=== PATIENT | female | born 1995 | race Caucasian/White ===

== ENCOUNTER 2016-09-04 17:37 | Emergency (ER) | payer BC, OTHER ==
[2016-09-04 17:45] VITALS: RESP 18; TEMP 97.6
[2016-09-04] MEDS ORDERED: SODIUM CHLORIDE 0.9% 1,000 ML IV STA (17:50)
[2016-09-04] MEDS ORDERED: RX INFO: IV CONTRAST WAS GIVEN 1 EACH MISC MISCELLANE PRN (17:50)
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
[2016-09-04 18:35] LABS: Basophils # (A) 0.1 k/uL (0-0.2); Basophils % (A) 1 %; CH 28.6; Eosinophils # (A) 0.2 k/uL (0-0.7); Eosinophils % (A) 3 %; HCT 42.5 % (34.0-46.0); HGB 13.9 gm/dL (11.4-16.0); Luc # (Auto) 0.11; Luc % (Auto) 2; Lymphocytes # (A) 1.3 k/uL (1.0-4.8); Lymphocytes % (A) 18 %; MCH 28.4 pg (25.0-35.0); MCHC 32.6 g/dL (31.0-37.0); MCV 86.9 fL (80.0-100.0); Mean Platelet Volume 7.9; Monocytes # (A) 0.4 k/uL (0-1.0); Monocytes % (A) 5 %; Neutrophils # (A) 5.2 k/uL (1.3-7.7); Neutrophils % (A) 72 %; RBC 4.89 m/uL (3.80-5.40); RDW 13.7 % (11.5-15.5); WBC 7.2 k/uL (4.0-11.0); WBC (Perox) 7.04
[2016-09-04 18:47] LABS: ALT 6 U/L (9-52); AST 56 U/L (14-36); Alkaline Phosphatase 67 U/L (38-126); Anion Gap 13 mmol/L; Blood Urea Nitrogen 10 mg/dL (7-17); Carbon Dioxide 26 mmol/L (22-30); Chloride 102 mmol/L (98-107); Glucose 91 mg/dL (74-99); Non-African American GFR(MDRD) >60 (>60 ml/min/1.73 sqM); Potassium 5.2 mmol/L (3.5-5.1); Sodium 141 mmol/L (137-145); Total Bilirubin 1.9 mg/dL (0.2-1.3); Total Protein 8.8 g/dL (6.3-8.2)
[2016-09-04 19:10] LABS: Appearance,Urine Clear (Clear); Bilirubin,Urine Negative (Negative); Glucose,Urine (UA) Negative (Negative); Ketones,Urine Negative (Negative); Leukocyte Esterase,Urine Negative (Negative); Nitrite,Urine Negative (Negative); Protein,Urine Negative (Negative); Specific Gravity,Urine 1.005 (1.001-1.035); UA Billing (MACRO vs. MICRO) CHEM; Urobilinogen,Urine <2.0 mg/dL (<2.0)
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
[2016-09-04 20:55] VITALS: BP 114/58; PULSE 80
== END 2016-09-04 21:04 | disposition home or self-care (01) ==
LOC: EC 17:37
DX: S00.83XA Contusion of other part of head, initial encounter (principal); R10.30 Lower abdominal pain, unspecified; F17.210 Nicotine dependence, cigarettes, uncomplicated; Z91.048 Other nonmedicinal substance allergy status; V48.5XXA Car driver injured in noncollision transport accident in traffic accident, initial encounter; Y92.410 Unspecified street and highway as the place of occurrence of the external cause
CPT/HCPCS: 99284; 96360; 36415; 80053; 85025; 81003; 81025; 72125; 70486; 70450; 71260; 74177; Q9967

== ENCOUNTER 2018-04-05 04:15 | Inpatient (IN) | payer BC, OTHER ==
[2018-04-05] MEDS ORDERED: LIDOCAINE 0.5% (PF) 5 MG/ML (50 ML SDV) SQ PRN (04:29)
[2018-04-05] MEDS ORDERED: METHYLERGONOVINE 0.2 MG/ML 1 ML AMP IM PRN (04:29)
[2018-04-05] MEDS ORDERED: CARBOPROST TROMETHAMINE 250 MCG/ML 1 ML AMP IM PRN (04:29)
[2018-04-05] MEDS ORDERED: TERBUTALINE 1 MG/ML VIAL SQ PRN (04:29)
[2018-04-05] MEDS ORDERED: OXYTOCIN 10 UNIT/ML 1 ML VIAL IM PRN (04:29)
[2018-04-05] MEDS ORDERED: LACTATED RINGERS 1,000 ML IV SCH ×2 (04:30)
[2018-04-05 05:16] VITALS: BMI 27.7
[2018-04-05] MEDS ORDERED: ROPIVACAINE 5MG/ML 20ML VIAL ONE (05:30)
[2018-04-05] MEDS ORDERED: fentaNYL (PF) 50 MCG/ML 5 ML AMP ONE (05:30)
[2018-04-05] MEDS ORDERED: SODIUM CHLORIDE 0.9% 100 ML BAG ONE (05:30)
[2018-04-05 05:31] LABS: Basophils % (A) 0 %; Eosinophils # (A) 0.2 k/uL (0-0.7); Eosinophils % (A) 1 %; HCT 37.8 % (34.0-46.0); HGB 12.2 gm/dL (11.4-16.0); Lymphocytes # (A) 1.4 k/uL (1.0-4.8); Lymphocytes % (A) 9 %; MCH 28.6 pg (25.0-35.0); MCHC 32.3 g/dL (31.0-37.0); MCV 88.3 fL (80.0-100.0); Mean Platelet Volume 9.2; Monocytes # (A) 0.7 k/uL (0-1.0); Monocytes % (A) 5 %; Neutrophils # (A) 13.3 k/uL (1.3-7.7); Neutrophils % (A) 85 %; Platelet Count 189 k/uL (150-450); RBC 4.28 m/uL (3.80-5.40); RDW 14.8 % (11.5-15.5); WBC 15.6 k/uL (3.8-10.6)
[2018-04-05 05:49] LABS: Amphetamine Screen,Urine Not Detected (NotDetected); Barbiturate Screen,Urine Not Detected (NotDetected); Benzodiazepines Screen,Urine Not Detected (NotDetected); Cocaine Screen,Urine Not Detected (NotDetected); Methadone Screen, Urine Not Detected (NotDetected); Opiate Screen,Urine Not Detected (NotDetected); Oxycodone Screen, Urine Not Detected (NotDetected); Phencyclidine Screen,Urine Not Detected (NotDetected); Tricyclic Antidepressant,Urine Not Detected (NotDetected); Urn Cannabinoid Scrn Detected (NotDetected)
--- NOTE | 2018-04-05 06:25 | P.HPOB ---
History of Present Illness H&P Date: 04/05/18 Chief Complaint: Contractions This is a 22-year-old 1 para 0 with an estimated due date of 04/05/2018 who presents at 40-0/7 weeks gestation in spontaneous active labor. She reports onset of regular uterine contractions at approximately 2 AM. She denies leakage of fluids or vaginal bleeding. This has been complicated by late initiation of care and genital HSV. She is currently on Valtrex suppression. She denies current lesions or prodromal symptoms. Laboratory data: Blood type O+, antibody screen negative, rubella nonimmune, VDRL nonreactive, hep Veena surface antigen negative, HIV negative, VDRL nonreactive, currently clinically cultures negative, varus L immune, urine drug screen positive for cannabis on 02/23/2018, group B strep negative, GTT screening within normal limits. Review of Systems All systems: negative Past Medical History Past Medical History: Unable to Obtain Additional Past Medical History / Comment(s): irritable bowel syndrome History of Any Multi-Drug Resistant Organisms: None Reported Past Surgical History: No Surgical Hx Reported Additional Past Anesthesia/Blood Transfusion Reaction / Comment(s): has not had anesthetic Past Psychological History: Anxiety, Depression Smoking Status: Former smoker Past Alcohol Use History: Occasional Additional Past Alcohol Use History / Comment(s): Patient is smoker 1/3 pack cigarettes per day. She states she smokes marijuana on a daily basis. She has been known using hallucinogenics. Patient is unemployed. She has dropped out of high school. Pt admits to binge drinking twice a week does not know how much she consumes states it is a lot Past Drug Use History: Marijuana Additional Drug Use History / Comment(s): smokes 2 joints per day Has been taking mollies daily and occassional ecstacy - Past Family History Father Family Medical History: No Reported History Additional Family Medical History / Comment(s): There is age 43 and has problems with alcoholism. Mother Family Medical History: No Reported History Additional Family Medical History / Comment(s): Mother is age 42 and healthy. Patient has one half-brother with no major medical problems. Patient has 3 sisters, one is older with drinking problems but quit because she was and 2 are younger with no major medical problems. Medications and Allergies Home Medications Medication Instructions Recorded Confirmed Type Sertraline [Zoloft] 25 mg PO DAILY #30 tab 09/23/15 Rx lamoTRIgine [LaMICtal] 25 mg PO BID #60 tab 09/23/15 Rx traZODone HCL [Desyrel] 50 mg PO HS #30 tab 09/23/15 Rx Pnv,Calcium 72/Iron/Folic Acid 1 tab PO ONCE 04/05/18 04/05/18 History [ Plus Tablet] valACYclovir HCL [Valtrex] 1 tab PO ONCE 04/05/18 04/05/18 History Allergies Allergy/AdvReac Type Severity Reaction Status Date / Time adhesive tape Allergy Rash/Hives Verified 04/05/18 04:25 Exam Vital Signs Temp Pulse Resp BP Pulse Ox 04/05/18 04:38 96.7 F L 69 16 123/81 97 04/05/18 04:25 96.7 F L 69 16 123/81 97 Intake and Output 04/04/18 04/04/18 04/05/18 14:59 22:59 06:59 Other: # Voids 1 Weight 78.018 kg Upon my initial evaluation she is just received an epidural. This is a visibly uncomfortable, actively laboring female is having a difficult time sitting still in the head secondary to discomfort. On pelvic examination cervix is 8 cm dilated 100% effaced and the vertex is in the -2 station. Artificial rupture of membranes is undertaken and clear fluid is noted. scalp electrode is placed secondary to heart rate decelerations down to the 80s to 90s beats per minute. This doesn't resolve to the 110s to 1 20 bpm with maternal position changes and O2 and IV fluids. Blood pressure is 120s over 70s. Results Result Diagrams: 04/05/18 04:48 Abnormal Lab Results - Last 24 Hours (Table) 04/05/18 04/05/18 Range/Units 04:17 04:48 WBC 15.6 H (3.8-10.6) k/uL Neutrophils # 13.3 H (1.3-7.7) k/uL U Marijuana (THC) Screen Detected H (NotDetected) Assessment and Plan (1) Genital HSV Current Visit: Yes Status: Acute Code(s): A60.00 - HERPESVIRAL INFECTION OF UROGENITAL SYSTEM, UNSPECIFIED SNOMED Code(s): 07459777 (2) Rubella non-immune status, antepartum Current Visit: Yes Status: Acute Code(s): O99.89 - OTH DISEASES AND CONDITIONS COMPL PREG/CHLDBRTH; Z28.3 - UNDERIMMUNIZATION STATUS SNOMED Code(s ): 560874235 (3) Spontaneous onset of labor Current Visit: Yes Status: Acute Code(s): DXC9643 - SNOMED Code(s): 64874746 Plan: 22-year-old 1 para 0 at 40-0/7 weeks gestation in spontaneous active labor. Group B strep negative and Rh+. status currently overall reassuring. Anticipate normal spontaneous vaginal delivery.
[2018-04-05] MEDS ORDERED: IBUPROFEN 600 MG TAB PO PRN (10:15)
[2018-04-05] MEDS ORDERED: LANOLIN CREAM 5 GM TUBE TOPICAL PRN (10:15)
[2018-04-05] MEDS ORDERED: diphenhydrAMINE 50 MG/ML 1 ML VIAL IVP PRN ×2 (10:15)
[2018-04-05] MEDS ORDERED: HYDROCORTISONE 2.5% RECTAL CREAM 30 GM TUBE RECTAL PRN (10:15)
[2018-04-05] MEDS ORDERED: ACETAMINOPHEN TAB 325 MG TAB PO PRN (10:15)
[2018-04-05] MEDS ORDERED: diphenhydrAMINE 25 MG CAP PO PRN (10:15)
[2018-04-05] MEDS ORDERED: WITCH HAZEL 1 EACH MED..PAD TOPICAL PRN (10:15)
[2018-04-05] MEDS ORDERED: SIMETHICONE 80 MG CHEWABLE PO PRN (10:15)
[2018-04-05] MEDS ORDERED: BENZOCAINE/MENTHOL SPRAY 1 GM/SPRAY AEROSOL TOPICAL PRN (10:15)
[2018-04-05] MEDS ORDERED: ZOLPIDEM 5 MG TAB PO PRN (10:15)
[2018-04-05] MEDS ORDERED: diphenhydrAMINE 50 MG CAP PO PRN (10:15)
--- NOTE | 2018-04-05 10:15 | P.PROBDLV ---
Vaginal Delivery Note - . Vaginal Delivery Note: This is a 22-year-old white female 1 para 0 EDC 04/05/2018 at 40 weeks gestation. Patient presented in active spontaneous labor. Her was remarkable for rubella status nonimmune, blood type O+, group B strep cultures negative. Please see dictated history and physical for details. Artificial amniorrhexis revealed clear fluid. Patient requested and received an epidural. She progressed well through the first stage of labor. She became completely dilated at 0913 hours and began the second stage of labor at that time. heart tones were overall reassuring with excellent [id number] variability on internal scalp lead. There were type I decelerations noted, several with late components. However excellent maternal expulsive efforts were employed. The perineal body was prepped and draped in usual sterile fashion. The infant's head delivered occiput anterior and she restituted accordingly. There was no nuchal cord noted. The right or anterior shoulder was delivered easily from underneath the pubic symphysis at which time the oropharynx, nasopharynx, and external nares were all bulb suctioned on the perineal body. Patient was officially delivered a liveborn female infant at 0953 hours. Umbilical cord was doubly clamped and ligated, she was handed to waiting nurses for evaluation where scores of 9 and 9 at one and 5 minutes respectively were given. The placenta delivered spontaneously, it was inspected and noted to be intact with trivascular cord at 0956 hours. Uterus is massaged. Oxytocin is given. Inspection of the cervix, vagina, perineum, periurethral, and. Rectal areas revealed a small left first-degree perineal laceration. This was repaired in the usual fashion using 3-0 Vicryl suture for excellent reapproximation. Total estimated blood loss 350cc. weighs 4000 g, or 8 lbs. 13 oz. All sponge needle and instrument counts are correct at the end of my procedure. Patient and her family are allowed to begin the bonding experience in the LDR.
[2018-04-05] MEDS: SENNOSIDES-DOCUSATE SODIUM 1 EACH TAB PO SCH (21:01)
[2018-04-06 07:17] LABS: Basophils % (A) 0 %; Eosinophils # (A) 0.1 k/uL (0-0.7); Eosinophils % (A) 1 %; HCT 31.9 % (34.0-46.0); HGB 10.4 gm/dL (11.4-16.0); Lymphocytes # (A) 1.6 k/uL (1.0-4.8); Lymphocytes % (A) 12 %; MCH 29.6 pg (25.0-35.0); MCHC 32.7 g/dL (31.0-37.0); MCV 90.3 fL (80.0-100.0); Mean Platelet Volume 8.9; Monocytes # (A) 0.5 k/uL (0-1.0); Monocytes % (A) 4 %; Neutrophils # (A) 10.4 k/uL (1.3-7.7); Neutrophils % (A) 81 %; Platelet Count 170 k/uL (150-450); RBC 3.53 m/uL (3.80-5.40); RDW 14.9 % (11.5-15.5); WBC 12.7 k/uL (3.8-10.6)
--- NOTE | 2018-04-06 07:35 | P.DS ---
Providers Date of admission: 04/05/18 04:25 Expected date of discharge: 04/06/18 Attending physician: Poonam Ware Primary care physician: Stated None Hospital Course: This is a 22-year-old white female 1 para 0 EDC 04/05/2018 at 40 weeks gestation. Patient presented in active spontaneous labor. She had a reasonably unremarkable , group B strep cultures negative, rubella nonimmune. She has a history of herpes simplex, but has been on Valtrex prophylactically daily and presented with no signs or symptoms or lesions. Please see admitting history and physical for details. Artificial amniorrhexis revealed clear fluid. Patient received an epidural per her request. She declined the suggestion for oxytocin. She did go on to deliver a liveborn female infant with scores of 9 and 9 at one and 5 minutes respectively. Infant weighed 4000 g or 8 lbs. 13 oz. There was a small first-degree perineal laceration easily repaired. Please see my dictated delivery note for details. This morning the patient is doing well. She is voiding, ambulating and passing flatus without difficulty. Vital signs are stable and she is afebrile. Fundus is firm and in the midline, symmetric and 18 week size. Extremities are negative for edema. Chest is clear in all schmidt. is doing well. Patient is requesting discharged home and I believe she is in good condition for discharge. Patient will follow-up in the office with me in 6 weeks. I have reminded her no intercourse, tampons or douching. She will use [id number] Advil or Aleve as needed for pain. She will call me with any fevers shakes or chills, foul smelling or copious lochia, with the passage of large blood clots, with any pain not alleviated by [id number] products, or indeed with any concerns. I have given her prescription for a double electric breast pump which she will use as needed. We have briefly considered options for contraception and we will review this further in the office in 6 weeks. Patient Condition at Discharge: Good Plan - Discharge Summary Discharge Rx Participant: No New Discharge Prescriptions: No Action traZODone HCL [Desyrel] 50 mg PO HS #30 tab lamoTRIgine [LaMICtal] 25 mg PO BID #60 tab Sertraline [Zoloft] 25 mg PO DAILY #30 tab Pnv,Calcium 72/Iron/Folic Acid [ Plus Tablet] 1 tab PO ONCE valACYclovir HCL [Valtrex] 1 tab PO ONCE Discharge Medication List Sertraline [Zoloft] 25 mg PO DAILY #30 tab 09/23/15 [Rx] lamoTRIgine [LaMICtal] 25 mg PO BID #60 tab 09/23/15 [Rx] traZODone HCL [Desyrel] 50 mg PO HS #30 tab 09/23/15 [Rx] Pnv,Calcium 72/Iron/Folic Acid [ Plus Tablet] 1 tab PO ONCE 04/05/18 [ History] valACYclovir HCL [Valtrex] 1 tab PO ONCE 04/05/18 [History] Follow up Appointment(s)/Referral(s): Poonam Ware MD [STAFF PHYSICIAN] - 6 Weeks Discharge Disposition: HOME SELF-CARE
[2018-04-06] MEDS: SENNOSIDES-DOCUSATE SODIUM 1 EACH TAB PO SCH (08:00)
[2018-04-06 11:34] VITALS: BP 121/68; PULSE 67; RESP 18; TEMP 98.2
== END 2018-04-06 13:15 | disposition home or self-care (01) | DRG 806 ==
LOC: FBPOP 04:15 → 4FBP 04:25
PROVIDERS: ADMIT Obstetrics & Gynecology; ATTEND Obstetrics & Gynecology
PROC: 10E0XZZ Delivery of Products of Conception, External Approach (ICD-10-PCS; principal; 2018-04-05)
PROC: 0HQ9XZZ Repair Perineum Skin, External Approach (ICD-10-PCS; 2018-04-05)
PROC: 00HU33Z Insertion of Infusion Device into Spinal Canal, Percutaneous Approach (ICD-10-PCS; 2018-04-05)
PROC: 3E0R3BZ Introduction of Anesthetic Agent into Spinal Canal, Percutaneous Approach (ICD-10-PCS; 2018-04-05)
PROC: 4A1H7CZ Monitoring of Products of Conception, Cardiac Rate, Via Natural or Artificial Opening (ICD-10-PCS; 2018-04-05)
PROC: 10H073Z Insertion of Monitoring Electrode into Products of Conception, Via Natural or Artificial Opening (ICD-10-PCS; 2018-04-05)
DX: O70.0 First degree perineal laceration during delivery (principal); O98.32 Other infections with a predominantly sexual mode of transmission complicating childbirth; Z37.0 Single live birth; O99.324 Drug use complicating childbirth; F12.90 Cannabis use, unspecified, uncomplicated; O99.334 Smoking (tobacco) complicating childbirth; F17.210 Nicotine dependence, cigarettes, uncomplicated; O99.344 Other mental disorders complicating childbirth; F32.9 Major depressive disorder, single episode, unspecified; O99.62 Diseases of the digestive system complicating childbirth; K58.9 Irritable bowel syndrome, unspecified; F41.9 Anxiety disorder, unspecified; Z3A.40 40 weeks gestation of pregnancy; Z28.3 Underimmunization status; Z79.899 Other long term (current) drug therapy; Z81.1 Family history of alcohol abuse and dependence; Z91.048 Other nonmedicinal substance allergy status
CPT/HCPCS: 80306; 85025; 86850; 86900; 86901; 99213

== ENCOUNTER 2022-02-06 20:05 | Outpatient (CLI) | payer BC, OTHER ==
[2022-02-06 20:32] LABS: Appearance,Urine Clear (Clear); Bacteria,Urine Few /hpf; Bilirubin,Urine Negative (Negative); Blood,Urine Large (Negative); Color,Urine Light Yellow; Glucose,Urine (UA) Negative (Negative); Ketones,Urine Negative (Negative); Leukocyte Esterase,Urine Trace (Negative); Nitrite,Urine Negative (Negative); Protein,Urine Negative (Negative); RBC,Urine 21 /hpf (0-5); Specific Gravity,Urine 1.006 (1.001-1.035); Squamous Epithelial Cell,Urine <1 /hpf (0-4); Urobilinogen,Urine <2.0 mg/dL (<2.0); WBC,Urine 6 /hpf (0-5)
[2022-02-06 21:32] VITALS: BP 119/66; PULSE 86; RESP 16; TEMP 97.5
--- NOTE | 2022-02-17 09:41 | P.MSEPDOC ---
Presenting Problems - Arrival Data Date of Arrival on Unit: 02/06/22 Time of Arrival on Unit: 20:05 Mode of Transport: Ambulatory - Complaint OB-Reason for Admission/Chief Complaint: Other Comment: brown urine, contractions yesterday, and pelvic pressure Medical History - Information : 2 Para: 1 Term: 1 : 0 Abortions: Spontaneous or Elective: 0 Number of Living Children: 1 - Gestational Age Gestational Age by RYAN (wks/days): 30 Weeks and 6 Days Review of Systems - Review of Systems Constitutional: No problems Breast: No problems ENT: No problems Cardiovascular: No problems Respiratory: No problems Gastrointestinal: No problems Genitourinary: No problems Musculoskeletal: No problems Neurological: No problems Skin: No problems Vital Signs - Temperature Temperature: 97.5 F Temperature Source: Temporal Artery Scan - Pulse Pulse Oximetery Pulse Rate: 86 Pulse Assessment Method: Pulse Oximetry - Respirations Respiratory Rate: 16 Oxygen Delivery Method: Room Air O2 Sat by Pulse Oximetry: 98 - Blood Pressure Right Arm Blood Pressure: 119/66 Blood Pressure Mean: 83 Blood Pressure Source: Automatic Cuff Medical Screen Scoring - Cervical Exam Dilation (cm): 0 Effacement (%): 50 Station: -3 Membranes: Intact - Assessment - Baby A Baseline FHR: 140 Heart Rate - NICHD Category: Category I (Normal) NST: Reactive Physician Notification - Physician Notified Physician Notified Date: 02/06/22 Physician Notified Time: 20:15 Physician: Poonam Ware Order Received: Yes - Notification Comment Comment: Dr. Ware already on phone, report given on pt's complaints of brown urine,. contractions yesterday, and pelvic pressure today. Pt has only been on the monitors for. a few minutes but no contractions noted thus far. Orders to send a UA and perform SVE. 2054-Dr. Ware called, report given on SVE closed/thick/high, UA showed large blood,. 21 RBCs, and 6 WBCs, no contractions, and pt has no complaints at this time. Orders to. send UA to culture and discharge pt home with instructions to greatly increase oral. fluids, pelvic rest, and see Dr. Ware next week (not on the as currently. scheduled). Maternal Triage Index - Maternal Triage Index Presenting for scheduled procedure w/no complaint: No - Stat/Priority 1 Stat Priority 1: No - Urgent/Priority 2 Urgent Priority 2: No - Prompt/Priority 3 Prompt Priority 3: No - Non-Urgent/Priority 4 Non-Urgent Priority 4: Yes Criteria Met for Priority 4: 30 6/7weeks, brown urine, pelvic pressure, and contractions (yesterday) Disposition - Disposition OB Disposition: Physician follow up in office, Discharge to home Discharge Date: 02/06/22 Discharge Time: 21:01 I agree with the RN Medical Screening Exam: Yes Case reviewed; plan agreed upon as documented in EMR&OBIX.: Yes Diagnosis: RELATED CONDITIONS, UNSPECIFIED, THIRD TRIMESTER
== END 2022-02-06 21:01 | disposition home or self-care (01) ==
LOC: FBPOP 20:05
PROVIDERS: ATTEND Obstetrics & Gynecology
DX: O26.893 Other specified pregnancy related conditions, third trimester (principal); Z3A.30 30 weeks gestation of pregnancy; Z87.891 Personal history of nicotine dependence; Z91.048 Other nonmedicinal substance allergy status
CPT/HCPCS: 59025; 81001; 99213

== ENCOUNTER 2022-04-10 19:10 | Inpatient (IN) | payer OTHER ==
[2022-04-10] MEDS ORDERED: LIDOCAINE 0.5% (PF) 5 MG/ML (50 ML SDV) SQ PRN (19:39)
[2022-04-10] MEDS ORDERED: TERBUTALINE 1 MG/ML VIAL SQ PRN (19:39)
[2022-04-10] MEDS ORDERED: OXYTOCIN 30 UNITS/500 ML NS 30 UNIT in SALINE 1 500ML.BAG IV SCH ×2 (19:45→20:45)
[2022-04-10] MEDS ORDERED: AMPICILLIN 2,000 MG in SODIUM CHLORIDE 0.9% 100 ML IVPB STA (19:51)
[2022-04-10] MEDS ORDERED: diphenhydrAMINE 50 MG/ML 1 ML VIAL IVP PRN ×2 (20:37)
[2022-04-10] MEDS ORDERED: ZOLPIDEM 5 MG TAB PO PRN (20:37)
[2022-04-10] MEDS ORDERED: SIMETHICONE 80 MG CHEWABLE PO PRN (20:37)
[2022-04-10] MEDS ORDERED: BENZOCAINE/MENTHOL SPRAY 1 GM/SPRAY AEROSOL TOPICAL PRN (20:37)
[2022-04-10] MEDS ORDERED: diphenhydrAMINE 50 MG CAP PO PRN (20:37)
[2022-04-10] MEDS ORDERED: LANOLIN CREAM 5 GM TUBE TOPICAL PRN (20:37)
[2022-04-10] MEDS ORDERED: HYDROCORTISONE 2.5% RECTAL CREAM 30 GM TUBE RECTAL PRN (20:37)
[2022-04-10] MEDS ORDERED: ACETAMINOPHEN TAB 325 MG TAB PO PRN (20:37)
[2022-04-10] MEDS ORDERED: diphenhydrAMINE 25 MG CAP PO PRN (20:37)
--- NOTE | 2022-04-10 20:46 | P.PROBDLV ---
Vaginal Delivery Note - . Vaginal Delivery Note: 26-year-old at 39-6/7 weeks that presents in active labor. Patient is noted to be upon presentation to the room. With 1 push head was delivered in occiput anterior presentation, the shoulders followed by the body were delivered easily and the infant was placed on the maternal abdomen. After a short delay the umbilical cord was doubly clamped and cut. Cord blood was taken as her blood type was O+. The placenta was delivered spontaneously intact with a three-vessel cord being appreciated. On inspection the patient's vaginal vault a first-degree vaginal laceration was noted at the introitus. This area is injected with lidocaine and repaired with 3-0 Rapide in the usual fashion. Hemostasis appreciated after closure. Uterus is noted be firm and below the umbilicus. All counts are noted to be correct 2 after the delivery. Patient and tolerated delivery well and are resting comfortably.
--- NOTE | 2022-04-10 20:46 | P.HPOB ---
History of Present Illness H&P Date: 04/10/22 Chief Complaint: IUP at 39-6/7 weeks This is a 26-year-old at 39-6/7 weeks, estimated due date of 04/11 that presents in active labor. Patient is unsure when contractions began but states possibly this afternoon. She denied loss of fluid but amnisure was positive her e on labor and delivery. Patient has been receiving routine care that has been essentially uncomplicated. On bloodwork this patient is a blood type of O+, rubella is nonimmune, hepatitis B surface antigen negative, HIV negative, group beta strep cultures are positive. Patient notes good movement, states contractions every 4 minutes Review of Systems Constitutional: Denies chills, Denies fatigue, Denies fever Ears, nose, mouth and throat: Denies headache Cardiovascular: Denies leg edema Respiratory: Denies dyspnea Gastrointestinal: Denies nausea, Denies vomiting Genitourinary: Reports Past Medical History Past Medical History: Unable to Obtain Additional Past Medical History / Comment(s): irritable bowel syndrome History of Any Multi-Drug Resistant Organisms: None Reported Past Surgical History: No Surgical Hx Reported Additional Past Anesthesia/Blood Transfusion Reaction / Comment(s): has not had anesthetic Smoking Status: Never smoker - Past Family History Father Family Medical History: No Reported History Additional Family Medical History / Comment(s): There is age 43 and has problems with alcoholism. Mother Family Medical History: No Reported History Additional Family Medical History / Comment(s): Mother is age 42 and healthy. Patient has one half-brother with no major medical problems. Patient has 3 sisters, one is older with drinking problems but quit because she was and 2 are younger with no major medical problems. Medications and Allergies Home Medications Medication Instructions Recorded Confirmed Type Vit No.180/Iron/Folic 1 tab PO ONCE 04/05/18 02/06/22 History [ Plus Tablet] Allergies Allergy/AdvReac Type Severity Reaction Status Date / Time adhesive tape Allergy Rash/Hives Verified 02/06/22 20:20 Exam Osteopathic Statement: *. No significant issues noted on an osteopathic structural exam other than those noted in the History and Physical/Consult. Intake and Output 04/10/22 04/10/22 04/10/22 06:59 14:59 22:59 Other: Weight 74.843 kg Targeted physical exam is performed in general this is a well-nourished well- developed female in active labor in obvious distress, breathing is nonlabored, abdomen is gravid, she is completely dilated and upon presentation. heart tones were noted be category 1. Assessment and Plan (1) Term Current Visit: Yes Status: Acute Code(s): Z34.90 - ENCNTR FOR SUPRVSN OF NORMAL , UNSP, UNSP TRIMESTER SNOMED Code(s): 26549044 (2) SROM (spontaneous rupture of membranes) Current Visit: Yes Status: Acute Code(s): BOO2176 - SNOMED Code(s): 604945612 (3) Positive GBS test Current Visit: Yes Status: Acute Code(s): B95.1 - STREPTOCOCCUS, GROUP B, CAUSING DISEASES CLASSD ELSWHR SNOMED Code(s): 409319683 (4) Spontaneous onset of labor Current Visit: No Status: Acute Code(s): OQM6238 - SNOMED Code(s): 63478582 Plan: This is a at 39-6/7 weeks that presents in active labor. Patient is declining antibiotic prophylaxis for group beta strep cultures. Discussion was had with the RN regarding need for antibiotics she declines. Anticipate precipitous delivery
[2022-04-10] MEDS ORDERED: PRENATAL VIT-IRON-FOLIC ACID 1 EACH TABLET PO ONE (21:00)
[2022-04-10 21:28] LABS: Basophils # (A) 0.1 k/uL (0-0.2); Basophils % (A) 0 %; Eosinophils % (A) 0 %; HCT 40.8 % (34.0-46.0); Lymphocytes # (A) 1.4 k/uL (1.0-4.8); Lymphocytes % (A) 9 %; MCH 30.4 pg (25.0-35.0); MCHC 34.3 g/dL (31.0-37.0); MCV 88.6 fL (80.0-100.0); Mean Platelet Volume 11.2; Monocytes # (A) 0.6 k/uL (0-1.0); Monocytes % (A) 4 %; Neutrophils # (A) 13.6 k/uL (1.3-7.7); Neutrophils % (A) 86 %; Platelet Count 192 k/uL (150-450); RDW 13.1 % (11.5-15.5); WBC 15.7 k/uL (3.8-10.6)
[2022-04-10 23:09] LABS: Amphetamine Screen,Urine Not Detected (NotDetected); Barbiturate Screen,Urine Not Detected (NotDetected); Benzodiazepines Screen,Urine Not Detected (NotDetected); Cocaine Screen,Urine Not Detected (NotDetected); Methadone Screen, Urine Not Detected (NotDetected); Opiate Screen,Urine Not Detected (NotDetected); Oxycodone Screen, Urine Not Detected (NotDetected); Phencyclidine Screen,Urine Not Detected (NotDetected); Tricyclic Antidepressant,Urine Not Detected (NotDetected); Urn Cannabinoid Scrn Not Detected (NotDetected)
[2022-04-11] MEDS ORDERED: AMPICILLIN 1,000 MG in SODIUM CHLORIDE 0.9% 50 ML IVPB SCH ×2
[2022-04-11] MEDS: IBUPROFEN 600 MG TAB PO SCH ×3 (02:19→17:15)
[2022-04-11] MEDS: LACTATED RINGERS 1,000 ML IV SCH ×2 (02:19→19:51)
[2022-04-11] MEDS: SENNOSIDES-DOCUSATE SODIUM 1 EACH TAB PO SCH ×2 (08:21→20:10)
--- NOTE | 2022-04-11 08:43 | P.PNOBGVD ---
Subjective - Subjective Principal diagnosis: day 1 status post normal spontaneous vaginal delivery Interval history: Patient is doing well . She is ambulating and voiding without difficulty. She is breast-feeding without difficulty. She denies concerns. She states her lochia is minimal. She didn't offer much this am, but overall looks well. Patient reports: Reports appetite normal, Reports voiding normally, Reports pain well controlled, Reports ambulating normally : doing well, nursing well Objective - Latest Vital Signs Latest vital signs: Vital Signs Temp Pulse Resp BP Pulse Ox 04/11/22 08:00 98.5 F 83 14 110/73 04/11/22 04:00 98.1 F 69 16 129/76 97 04/11/22 00:06 74 16 116/72 04/11/22 00:00 97.1 F L 74 16 116/72 04/10/22 22:39 84 16 114/72 04/10/22 22:09 71 16 122/72 04/10/22 21:39 67 16 122/79 04/10/22 21:24 74 16 121/78 04/10/22 21:09 75 16 119/77 04/10/22 20:54 79 16 116/74 04/10/22 20:39 97.6 F 78 16 119/80 98 04/10/22 19:25 97.9 F 76 16 134/86 Intake and Output 04/10/22 04/11/22 04/11/22 22:59 06:59 14:59 Intake Total 194.833 Output Total 175 Balance 194.833 -175 Intake: Intake, IV Titration 194.833 Amount Oxytocin 30 Units/500 ml 194.833 Ns 30 unit In Saline 1 500ml.bag @ Per Protocol IV .Q0M [facility] Rx#:[id number] Output: Output, Quantitative 175 Blood Loss Other: # Voids 1 1 2 Weight 74.843 kg 74.843 kg - Exam Extremities: Present: normal, edema Abdomen: Present: normal appearance Uterus: Present: normal, firm - Labs Labs: Abnormal Lab Results - Last 24 Hours (Table) 04/10/22 Range/Units 20:05 WBC 15.7 H (3.8-10.6) k/uL Neutrophils # 13.6 H (1.3-7.7) k/uL Assessment and Plan (1) Term Current Visit: Yes Status: Acute Code(s): Z34.90 - ENCNTR FOR SUPRVSN OF NORMAL , UNSP, UNSP TRIMESTER SNOMED Code(s): 82183123 (2) SROM (spontaneous rupture of membranes) Current Visit: Yes Status: Acute Code(s): TJL7231 - SNOMED Code(s): 037191574 (3) Positive GBS test Current Visit: Yes Status: Acute Code(s): B95.1 - STREPTOCOCCUS, GROUP B, CAUSING DISEASES CLASSD ELSR SNOMED Code(s): 621241999 (4) Spontaneous onset of labor Current Visit: No Status: Acute Code(s): LVZ2404 - SNOMED Code(s): 68545972 Plan: 26-year-old G2 now P2 status post normal spontaneous vaginal delivery. Patient was group beta strep positive and refused antibiotics. Awaiting pediatric input. She is frustrated with having to stay 48 hours, awaiting pediatric input once again. Continue routine care
[2022-04-12 00:44] VITALS: RESP 16
[2022-04-12] MEDS: IBUPROFEN 600 MG TAB PO SCH ×4 (02:54→18:05)
[2022-04-12 08:58] VITALS: BP 110/75; PULSE 75; TEMP 97.9
[2022-04-12] MEDS: SENNOSIDES-DOCUSATE SODIUM 1 EACH TAB PO SCH (09:00)
--- NOTE | 2022-04-12 11:35 | P.DS ---
Providers Date of admission: 04/10/22 19:32 Expected date of discharge: 04/12/22 Attending physician: Poonam Ware Primary care physician: Stated None - Discharge Diagnosis(es) (1) Term Current Visit: Yes Status: Acute (2) SROM (spontaneous rupture of membranes) Current Visit: Yes Status: Acute (3) Positive GBS test Current Visit: Yes Status: Acute (4) Spontaneous onset of labor Current Visit: No Status: Acute Hospital Course: This is a 26 yo G2 now P2 at 39 6/7 weeks that presented on 04/10 in active labor. she denied LOF, but amnisure was positive on admission. She did refuse gbs prophylaxis. She had been receiving routine care with Dr. Ware until 36 weeks. For full details on this patient please the dictated history and physical. Patient was admitted to labor and delivery and quickly progressed to complete. Patient had a normal spontaneous vaginal delivery of a viable male infant, weight 6-8 at 2020. Patient has done well . was noted to have abnormal CBC and is currently in the special care nursery receiving IV antibiotics. Blood culture was noted to be positive. Patient notes moderate lochia, pain is well-controlled. Breast-feeding is going well per patient. Patient Condition at Discharge: Good Plan - Discharge Summary Discharge Rx Participant: Yes New Discharge Prescriptions: No Action Vit No.180/Iron/Folic [ Plus Tablet] 1 tab PO ONCE Discharge Medication List Vit No.180/Iron/Folic [ Plus Tablet] 1 tab PO ONCE 04/05/18 [History] Follow up Appointment(s)/Referral(s): Poonam Ware MD [STAFF PHYSICIAN] - 6 Weeks Patient Instructions/Handouts: Vaginal Delivery (GEN), Vaginal Delivery (DC) Discharge Disposition: HOME SELF-CARE
== END 2022-04-12 18:31 | disposition home or self-care (01) | DRG 807 ==
LOC: FBPOP 19:10 → 4FBP 19:32
PROVIDERS: ADMIT Obstetrics & Gynecology Obstetrics; ATTEND Obstetrics & Gynecology
PROC: 0HQ9XZZ Repair Perineum Skin, External Approach (ICD-10-PCS; principal; 2022-04-10)
PROC: 10E0XZZ Delivery of Products of Conception, External Approach (ICD-10-PCS; principal; 2022-04-10)
DX: O99.824 Streptococcus B carrier state complicating childbirth (principal); O62.3 Precipitate labor; O70.0 First degree perineal laceration during delivery; Z53.29 Procedure and treatment not carried out because of patient's decision for other reasons; Z3A.39 39 weeks gestation of pregnancy; Z37.0 Single live birth
CPT/HCPCS: 59025; 80306; 85025; 86850; 86900; 86901; 99213